=== PATIENT | female | born 1965 | race Caucasian/White ===

== ENCOUNTER 2018-11-16 15:37 | Emergency (ER) | payer BC, OTHER ==
[2018-11-16 16:20] VITALS: BP 119/53
--- NOTE | 2018-11-16 16:34 | UC ---
Knee Pain HPI - HPI Summary HPI Summary: Pt presents with c/o right knee pain s/p falling from standing while walking across field at school. Pt states knee became swollen "instantly" . Pt is able to bear weight but states marv right knee is painful and "still very swollen" - History of Current Complaint Chief Complaint: UCLowerExtremity Stated Complaint: RT KNEE INJURY - W/C Time Seen by Provider: 11/16/18 16:20 Hx Obtained From: Patient ?: No Onset/Duration: Sudden Onset, Lasting Days, Still Present Severity Initially: Moderate Severity Currently: Moderate Pain Intensity: 6 Character: Dull, Aching, Stiffness Aggravating Factor(s): Movement, Weight Bearing, Prolonged Standing, Stairs Alleviating Factor(s): Rest, Position Associated Signs And Symptoms: Positive: Swelling Able to Bear Weight: Yes - Allergies/Home Medications Home Medications: Home Medications Albuterol HFA INHALER* [Ventolin HFA Inhaler*] 2 puff INH Q4H PRN 11/16/18 [ History Confirmed 11/16/18] Dorzolamide HCl/Pf [Dorzolamide 2% Eye Drop] 2 drop BOTH EYES DAILY 11/16/18 [ History Confirmed 11/16/18] Fexofenadine/Pseudoephedrine [Missy-D 24 Hour Tablet] 1 each PO DAILY [History Confirmed 11/16/18] Fluticasone HFA 110 mcg(NF) [Flovent HFA 110 mcg(NF)] 1 puff INH BID 11/16/18 [ History Confirmed 11/16/18] Fluticasone NASAL SPRAY 50MCG* [Flonase NASAL SPRAY 50MCG*] 2 spray BOTH NARES DAILY 11/16/18 [History Confirmed 11/16/18] Levothyroxine TAB* [Synthroid TAB*] 125 mcg PO 0800 11/16/18 [History Confirmed 11/16/18] Meloxicam [Qmiiz Odt] 15 mg PO DAILY 11/16/18 [History Confirmed 11/16/18] PMH/Surg Hx/FS Hx/Imm Hx Previously Healthy: Yes - Surgical History Surgical History: Yes Surgery Procedure, Year, and Place: c-sec x3 - Family History Known Family History: Positive: Cardiac Disease - Social History Occupation: Employed Full-time Lives: With Family Alcohol Use: Rare Substance Use Type: None Smoking Status (MU): Never Smoked Tobacco Have You Smoked in the Last Year: No - Immunization History Vaccination Up to Date: Yes Review of Systems All Other Systems Reviewed And Are Negative: Yes Constitutional: Positive: Negative Skin: Positive: Other - abrasion right knee, elbow and hand. Eyes: Positive: Negative ENT: Positive: Negative Respiratory: Positive: Negative Cardiovascular: Positive: Negative Gastrointestinal: Positive: Negative Genitourinary: Positive: Negative Motor: Positive: Decreased ROM - right knee due to swelling Neurovascular: Positive: Negative Musculoskeletal: Positive: Arthralgia, Decreased ROM, Edema, Myalgia Neurological: Positive: Negative Psychological: Positive: Negative Is Patient Immunocompromised?: No Physical Exam Triage Information Reviewed: Yes Appearance: Well-Appearing Vital Signs: Initial Vital Signs Temp 98.7 F 11/16/18 16:16 Pulse 73 11/16/18 16:16 Resp 16 11/16/18 16:16 BP 119/53 11/16/18 16:16 Pulse Ox 99 11/16/18 16:16 Vital Signs Reviewed: Yes Eye Exam: Normal ENT Exam: Normal ENT: Positive: Hearing grossly normal Respiratory: Positive: No respiratory distress Musculoskeletal: Positive: ROM Limited @ - right knee, Edema @ - right knee Neurological Exam: Normal Psychological Exam: Normal Skin Exam: Other - abrasion to right knee, right hand and right elbow Diagnostics - Radiology No standard instances Radiology Interpretation Completed By: Radiologist - REPORT AND IMPRESSION: #. Small joint effusion. Negative for fracture or malalignment. #. Osteoarthritis: Diffuse osteophytosis. Moderate medial and patellofemoral joint space narrowing. Associated partial flattening of the articular surfaces and subchondral sclerosis and cystic change at the undersurface of the patella. #. Predominant anterior soft tissue swelling Knee Pain Course/Dx - Differential Dx/Diagnosis Differential Diagnosis/HQI/PQRI: Abrasion, Contusion, Fracture (Closed) Provider Diagnosis: Contusion of knee, right, Abrasion, knee Discharge - Sign-Out/Discharge Documenting (check all that apply): Patient Departure All imaging exams completed and their final reports reviewed: Yes - Discharge Plan Condition: Stable Disposition: HOME Patient Education Materials: Contusion in Adults (ED), Knee Pain (ED), R.I.C.E. Treatment (ED) Referrals: Logan Davis MD [Medical Doctor] - If Needed Deepthi Veliz MD [Primary Care Provider] - If Needed - Billing Disposition and Condition Condition: STABLE Disposition: Home
== END 2018-11-16 17:34 | disposition home or self-care (01) ==
LOC: UCCORT 15:37
DX: S80.01XA Contusion of right knee, initial encounter (principal); W19.XXXA Unspecified fall, initial encounter; Z79.899 Other long term (current) drug therapy; M17.11 Unilateral primary osteoarthritis, right knee
CPT/HCPCS: 99201; G0463